=== PATIENT | male | born 1975 | race Caucasian/White ===

== ENCOUNTER 2017-04-11 13:31 | Emergency (ER) | payer MEDICAID ==
[~2017-04-11] VITALS: Ht 172.7 cm; Wt 159.7 kg
[2017-04-11 14:23] LABS: BASOPHIL % 0.2 % (0-2); PLATELET COUNT 294 x10^3mcL (130-400); RED CELL DISTRIBUTION WIDTH 13.4 % (11.5-14.5)
[2017-04-11 14:32] LABS: AMPHETAMINE QUAL UR NONE DETECTED (NEG <=1000)
[2017-04-11 14:34] LABS: CALCIUM 8.7 mg/dL (8.5-10.1); CHLORIDE SERUM 106 mmol/L (98-107); CREATININE SERUM 0.9 mg/dL (0.7-1.3); GFR1 > 60 mL/min; GLUCOSE SERUM 163 mg/dL (74-106); POTASSIUM SERUM 3.9 mmol/L (3.5-5.1); SODIUM SERUM 140 mmol/L (136-145)
[2017-04-11 14:39] LABS: ALKALINE PHOSPHATASE 156 U/L (46-116); ALT/SGPT 48 U/L (16-63); AST/SGOT 28 U/L (15-37); BILIRUBIN TOTAL 0.3 mg/dL (0.20-1.00); LIPASE 114 IU/L (73-393); TOTAL PROTEIN, SERUM 7.4 g/dL (6.4-8.2)
[2017-04-11 14:44] LABS: ALBUMIN 3.2 g/dL (3.4-5.0)
[2017-04-11] MEDS ORDERED: MULTI-VITAMINS1 TAB PO (15:46)
[2017-04-11 16:42] VITALS: BP 127/72
== END 2017-04-11 16:42 | disposition home or self-care (01) ==
LOC: ED 13:31
PROVIDERS: Emergency Medicine
DX: R07.89 Other chest pain (principal); R10.13 Epigastric pain; R10.32 Left lower quadrant pain
CPT/HCPCS: 36415; 83880; 85378; Q0092

== ENCOUNTER 2019-05-30 03:58 | Inpatient (IN) | payer SELFPAY ==
[~2019-05-30] VITALS: Ht 172.7 cm; Wt 146.1 kg
[~2019-05-30 03:58] MED LIST: MULTI-VITAMINS1 TAB PO
--- NOTE | 2019-05-30 04:34 | NUR ---
PT BIB FAMILY FOR C/O CHEST PAIN THAT HAS BEEN INTERMITTENT " FOR A WHILE". PT REPORTS THAT THIS " EPISODE" THE PAIN IS WORSE. PT REPORTS THE CHEST PAIN BEING NON PROVOKED BUT RADIATING DOWN RIGHT ARM AND BACK. PT DENIES ANY STRENUOUS ACTIVITY OR INCREASED STRESS. PT DENIES ANY COUGH RECENTLY. PT REPORTS THE CHEST PAIN A PRESSURE FEELING THAT CAUSES SOB. PT IS SPEAKING IN FULL 5 - 8 WORD SENTENCES. PT IS ABLE TO FOLLOW COMMANDS APPROPRIATELY. PT IS A/O X4. PT RESPS ARE E/U. PT IS ABLE TO AMUBLATE WITH STEADY GAIT FROM TRIAGE TO BED 8. PT PLACED ON SM. VSS WITHIN NORMAL LIMITS. DR DE LOS SANTOS COMPLETED MSE
[2019-05-30 05:14] LABS: BASOPHIL % 0.3 % (0-2); PLATELET COUNT 255 x10^3mcL (130-400); RED CELL DISTRIBUTION WIDTH 12.8 % (11.5-14.5)
[2019-05-30 05:16] LABS: CALCIUM 8.4 mg/dL (8.5-10.1); CARBON DIOXIDE 28.7 mmol/L (21-32); CHLORIDE SERUM 98 mmol/L (98-107); CREATININE SERUM 0.9 mg/dL (0.7-1.3); GFR1 > 60 mL/min; GLUCOSE SERUM 402 mg/dL (74-106); POTASSIUM SERUM 4.3 mmol/L (3.5-5.1); SODIUM SERUM 133 mmol/L (136-145)
[2019-05-30 05:20] LABS: ALBUMIN 3.5 g/dL (3.4-5.0); ALKALINE PHOSPHATASE 237 U/L (46-116); BILIRUBIN TOTAL 0.42 mg/dL (0.20-1.00); TOTAL PROTEIN, SERUM 7.1 g/dL (6.4-8.2)
[2019-05-30 05:32] LABS: ALT/SGPT 51 U/L (16-63); AST/SGOT 21 U/L (15-37)
--- NOTE | 2019-05-30 05:46 | NUR ---
PT IS ABLE TO AMBULATE TO THE RESTROOM WITH STEADY GAIT TO GIVE URINE SPECIMEN
--- NOTE | 2019-05-30 05:58 | NUR ---
NOTE MADE ABOVE WAS MADE BY MYSELF
--- NOTE | 2019-05-30 06:03 | NUR ---
PT RESTING IN POSITION OF COMFORT. PT HAS SIGNIFICANT OTHER AT BEDSIDE. PT GURNEY IN LOWEST SETTING FOR PT SAFETY. PT RESPS ARE E/U. NO AD NOTED
--- NOTE | 2019-05-30 07:29 | NUR ---
GAVE PT REPORT TO MARGARET LEAL ON TELE FLOOR TO ASSUME PRIMARY CARE OF PT ONCE PT IS TRANFERRED UPSTAIRS FOR CONTINUED CARE
--- NOTE | 2019-05-30 07:50 | NUR ---
ADMITTED FR. ER VIA [facility] ACCOPMANIED BY ER NURSE. CHIEF C/O CP THAT RADIATES TO L SHOULDER.AAO X4.DENIES ANY PAIN/DISCOMFORT AT THE MOMENT.LUNGS CLEAR.ON SR ON MONITOR # [id number].HR=[id number].ADMISSION ASSESSMENT AND HX COMPLETED.CALL LIGHT WITHIN REACH.INSTRUCTED TO CALL FOR ANY PAIN/DISCOMFORT.WILL CONTINUE TO MONITOR PT.
[2019-05-30 08:06] VITALS: BP 138/71
[2019-05-30 11:37] LABS: FREE T4 1.26 ng/dL (0.76-1.46); FREE THYROXINE INDEX 3.2 ug/dL (1.4-4.5); T4(THYROXINE) 8.9 ug/dL (4.7-13.3)
[2019-05-30 11:41] VITALS: Ht 172.7 cm; Wt 146.1 kg
[2019-05-30 11:49] LABS: microscopic required? NO
[2019-05-30 11:54] LABS: urine erythrocyte NEGATIVE (NEGATIVE)
--- NOTE | 2019-05-30 12:00 | NUR ---
PT COMFORTABLE NO COMPLAINTS.
[2019-05-30 12:02] VITALS: BP 117/63
[2019-05-30 12:41] LABS: AMPHETAMINE QUAL UR NONE DETECTED (See below)
[2019-05-30 12:45] LABS: MAGNESIUM 1.9 mg/dL (1.8-2.4); PHOSPHOROUS 4.3 mg/dL (2.5-4.9)
[2019-05-30 12:50] LABS: CHOLESTEROL 223 mg/dL (<200); CHOLESTEROL/HDL RATIO 8.3; HDL CHOLESTEROL 27 mg/dL (40-60)
[2019-05-30 13:13] LABS: TRIGLYCERIDES 1243 mg/dL (<150)
--- NOTE | 2019-05-30 15:23 | NUR ---
GAVE TYLENOL FOR C/O H/A AT 6/10 PAIN SCALE.WILL CONTINUE TO MONITOR PT.
--- NOTE | 2019-05-30 16:23 | NUR ---
RECHECKED PAIN LEVEL AFTER TAKING TYLENOL.CLAIMS TO HAVE NO MORE PAIN AT THE MOMENT.
[2019-05-30 16:37] VITALS: BP 122/80
--- NOTE | 2019-05-30 18:35 | NUR ---
NO SIGNIFICANT CHANGE NOTED.WILL ENDORSE TO NEXT SHIFT.
--- NOTE | 2019-05-30 19:35 | NUR ---
Pt. received from day shift, currently resting in bed awake and alert with family at bedside at this time. Pt. is a/o x3, able to make needs known, able to follow commands at this time. Pt. is requesting information on CXR at this time and will continue to onitor pt. and look at orders. Otherwise, pt. is stable, no c/o of chest pain, no SOB, no c/o of pain at this time. Pt. safety in check w/ call light placed within reach, pt. educated on when and how to use call light system, will continue to monitor pt at this time.
[2019-05-30 21:29] VITALS: BP 125/56
--- NOTE | 2019-05-31 | NUR ---
Pt. currently resting in bed, asleep. Pt. has no c/o pain, s/o distress, or SOB. Pt. asked about differences in Diabetes and how insulin worked and how long it would take for it to help lower his sugar levels. Educated pt. and pt. verbalized understanding alongside who was at bedside. Will continue to monitor pt. at this time.
[2019-05-31 05:32] VITALS: BP 118/67
--- NOTE | 2019-05-31 05:35 | NUR ---
Pt. currently resting in bed, asleep. Pt. has had no c/o of pain, h/a, n/v, SOB, or s/o distress throughout the night. Pt. was educated a few times when they had questions about DM. otherwise pt. stable, bed set at lowest position, call light placed wtihin reach and educated pt. on when and how to use call light system, will continue to monitor until the end of shift and endorse to next shift RN.
[2019-05-31 06:38] LABS: BASOPHIL % 0.3 % (0-2); PLATELET COUNT 220 x10^3mcL (130-400); RED CELL DISTRIBUTION WIDTH 12.8 % (11.5-14.5)
[2019-05-31 07:10] LABS: CALCIUM 8.3 mg/dL (8.5-10.1); CARBON DIOXIDE 25.5 mmol/L (21-32); CHLORIDE SERUM 100 mmol/L (98-107); CREATININE SERUM 0.7 mg/dL (0.7-1.3); GFR1 > 60 mL/min; GLUCOSE SERUM 286 mg/dL (74-106); MAGNESIUM 1.8 mg/dL (1.8-2.4); PHOSPHOROUS 3.1 mg/dL (2.5-4.9); POTASSIUM SERUM 4.2 mmol/L (3.5-5.1); SODIUM SERUM 133 mmol/L (136-145)
--- NOTE | 2019-05-31 07:20 | NUR ---
RECEIVED PT RESTING IN BED. AAOX4. RESP EVEN AND UNLABORED ON RA. DENIES CP OR PRESSURE. IV TO LAC, NO REDNESS OR SWELLING. REPORTS BM THIS AM. VOIDING FREELY. AMBULATORY. HOB ELEVATED. BED IN LOW POSITION, CALL LIGHT WITHIN REACH. WILL CONTINUE TO MONITOR.
[2019-05-31 08:43] VITALS: BP 145/84
[2019-05-31 11:54] VITALS: BP 126/70
[2019-05-31] MEDS ORDERED: GLU500 PO (12:06)
[2019-05-31] MEDS ORDERED: GEMFIBROZIL600 MG PO (12:07)
--- NOTE | 2019-05-31 12:14 | NUR ---
PT IN NO ACUTE DISTRESS. SITTING UP IN CHAIR. RESP EVEN AND UNLABORED ON RA. DENIES CP OR PRESSURE. IV TO LAC, NO REDNESS OR SWELLING. FAMILY AT BEDSIDE. CALL LIGHT WITHIN REACH. WILL CONTINUE TO MONITOR.
[2019-05-31] MEDS ORDERED: GLUCOMETER (12:26)
[2019-05-31 12:38] VITALS: BP 126/70
[2019-05-31 16:58] VITALS: BP 136/80
--- NOTE | 2019-05-31 17:36 | NUR ---
PT DISCHARGED TO HOME IN NO ACUTE DISTRESS. AWAKE, ALERT, AND ORIENTED. VSS. AMBULATORY. RX GIVEN. DISCHARGE EDUCATION PROVIDED, PT VERBALIZED UNDERSTANDING. INSTRUCTED PT TO FOLLOW UP WITH PCP. IV DC'D WITH CATHETER INTACT. TELE REMOVED. BELONGINGS WITH PT. THALIA JENKINS ACCOMPANIED PT TO LOBBY.
== END 2019-05-31 17:36 | disposition home or self-care (01) | DRG 313 ==
LOC: ED 03:58 → DU 05:38
PROVIDERS: Emergency Medicine; Internal Medicine; ADMIT Internal Medicine
DX: R07.89 Other chest pain (principal); Z68.42 Body mass index [BMI] 45.0-49.9, adult; E87.1 Hypo-osmolality and hyponatremia; E11.9 Type 2 diabetes mellitus without complications; E66.9 Obesity, unspecified; E83.51 Hypocalcemia; R74.0 Nonspecific elevation of levels of transaminase and lactic acid dehydrogenase [LDH]; Z23 Encounter for immunization; Z79.84 Long term (current) use of oral hypoglycemic drugs; Z79.899 Other long term (current) drug therapy
CPT/HCPCS: 82962; 83880; 84439; 90658; 90732; G0378; J1815; Q0092